=== PATIENT | female | born 1960 | race Caucasian/White ===

== ENCOUNTER 2017-05-03 16:40 | Emergency (ER) | payer BC ==
[2017-05-03 18:56] VITALS: BP 129/78
[2017-05-03] MEDS ORDERED: Clindamycin CAP* 150 MG PO ONE (20:12)
--- NOTE | 2017-05-03 22:47 | UC ---
Drea Gayle Edward, scribed for Quincy Lowe MD on 05/03/17 at 1948 . Skin Complaint HPI - HPI Summary HPI Summary: 57 y/o female presents to [facility] c/o sudden onset R hand rash, swelling and pain. The area is also hot. The red rash started last week as a small area of white that became progressively more erythematous and larger; the pt also developed hand and finger swelling and red streaks down the R forearm. Four days ago she was put on IV abx (clindamycin), which alleviated sx. However, there is a region of redness that persisted on the R lower palm and is still present. Denies fever and chills. PMHx HTN. - History of Current Complaint Chief Complaint: [place]CS[place] Time Seen by Provider: 05/03/17 19:36 Stated Complaint: HAND PAIN,REDNESS,INFLAMED Hx Obtained From: Patient Onset/Duration: Sudden Onset, Lasting Days, Still Present Skin Exposure Onset/Duration: Days Ago Location: Hand (Right) Character: Raised, Painful Associated Signs & Symptoms: Positive: Rash, Tenderness - R hand, Red Streaks - Down forearm (now resolved). Negative: Fever, Chills - Allergy/Home Medications Allergies/Adverse Reactions: Allergies Allergy/AdvReac Type Severity Reaction Status Date / Time No Known Allergies Allergy Verified 05/03/17 18:44 Home Medications: Home Medications Clindamycin Cap(NF) [Clindamycin Cap 300 mg Cap(NF)] 300 mg PO Q6H 05/03/17 [ History Confirmed 05/03/17] Review of Systems Constitutional: Negative - No fevers and chills Skin: Rash - R hand - with swelling and pain, Other - Red streaks down forearm ( now resolved) Eyes: Negative ENT: Negative Respiratory: Negative Cardiovascular: Negative Gastrointestinal: Negative Genitourinary: Negative Motor: Negative Neurovascular: Negative Musculoskeletal: Negative Neurological: Negative Psychological: Negative All Other Systems Reviewed And Are Negative: Yes PMH/Surg Hx/FS Hx/Imm Hx Previously Healthy: No Cardiovascular History: Hypertension - Surgical History Surgical History: Yes Surgery Procedure, Year, and Place: hysterectomy 1995 - Family History Known Family History: Positive: Hypertension - Social History Occupation: Employed Full-time Lives: With Family Alcohol Use: Occasionally Substance Use Type: None Smoking Status (MU): Never Smoked Tobacco - Immunization History Most Recent Influenza Vaccination: 2014 Most Recent Tetanus Shot: UNSURE Physical Exam Triage Information Reviewed: Yes Vital Signs: Initial Vital Signs Temp 98.1 F 05/03/17 18:46 Pulse 83 05/03/17 18:46 Resp 18 05/03/17 18:46 BP 129/78 05/03/17 18:46 Pulse Ox 100 05/03/17 18:46 Vital Signs Reviewed: Yes - Additional Comments The patient is well-nourished in no acute distress and in no acute pain. The skin is warm and dry and skin color reflects adequate perfusion. There is an area of erythema with a vesicle at the thenar eminence of the R hand. HEENT: The head is normocephalic and atraumatic. The pupils are equal and reactive. The conjunctivae are clear and without drainage. Nares are patent and without drainage. Mouth reveals moist mucous membranes and the throat is without erythema and exudate. The external ears are intact. The ear canals are patent and without drainage. The tympanic membranes are intact. Neck is supple with full range of motion and non-tender. There are no carotid bruits. There is no neck vein distension. Axillary nodes palpated. There were no epitrochlear nodes felt. Respiratory: Chest is non-tender. Lungs are clear to auscultation and breath sounds are symmetrical and equal. Cardiovascular: Hear is regular rate and rhythm. There is no murmur or rub auscultated. There is no peripheral edema and pulses are symmetrical and equal. Abdomen: The abdomen is soft and non-tender. There are normal bowel sounds heard in all four quadrants and there is no organomegaly palpated. Musculoskeletal: There is no back pain noted. Extremities are non-tender with full range of motion. There is good capillary refill. There is no peripheral edema or calf tenderness elicited. Neurological: Patient is alert and oriented to person, place and time. The patient has symmetrical motor strength in all four extremities. Cranial nerves are grossly intact. Deep tendon reflexes are symmetrical and equal in all four extremities. Psychiatric: The patient has an appropriate affect and does not exhibit any anxiety or depression. Course/Dx - Course Course Of Treatment: 57 y/o female presents to [facility] c/o sudden onset R hand rash , swelling and pain. The area is also hot. The red rash started last week as a small area of white that became progressively more erythematous and larger; the pt also developed hand and finger swelling and red streaks down the R forearm. Four days ago she was put on IV abx (clindamycin), which alleviated sx. However , there is a region of redness that persisted on the R lower palm and is still present. Denies fever and chills. PMHx HTN. Pt will be instructed to increase Clindamycin to 450 mg 4x a day. Basic lab work will be taken and sent to Dr. Toledo. Pt has an appt with Dr. Toledo tomorrow. Pt will be d/c home. If red streaks or fevers/chills develops, pt should go to the ED. - Differential Diagnoses - Skin Complaint Differential Diagnoses: Abscess, Cellulitis, Lymphangitis, Other - lymes disease - Diagnoses Provider Diagnoses: Cellulitis of R hand Discharge - Discharge Plan Condition: Stable Disposition: HOME Prescriptions: Clindamycin HCl [Clindamycin 150 MG CAP*] 150 mg PO QID #21 cap Patient Education Materials: Cellulitis (ED) Referrals: Tiara Toledo MD [Primary Care Provider] - 1 Day (Appt tomorrow) Additional Instructions: If red streaks or fevers/chills develops, please go to the ED. The documentation as recorded by the Drea gilbert Edward accurately reflects the service I personally performed and the decisions made by Mynor lai Drew, MD.
[2017-05-04 10:46] LABS: Hematocrit 40 % (35-47); Hemoglobin 13.1 g/dl (12.0-16.0); Mean Corpuscular HGB Conc 33 g/dl (31-36); Mean Corpuscular Hemoglobin 30 pg (27-31); Mean Corpuscular Volume 90 fL (80-97); Mean Platelet Volume 9 um3 (7.4-10.4); Red Blood Count 4.41 10^6/ul (4.0-5.4); Red Cell Distribution Width 13 % (10.5-15); White Blood Count 6.3 10^3/ul (3.5-10.8)
[2017-05-04 10:59] LABS: BUN/Creatinine Ratio 22.8 (8-20); C Reactive Protein 17.34 mg/L (< 5.00); EGFR African American 81.5 (>60); EGFR Non-African American 63.4 (>60); Potassium 3.9 mmol/L (3.5-5.0)
--- NOTE | 2017-05-04 16:35 | UC ---
Progress - Progress Note Progress Note: PLEASE CALL PATIENT CRP ELEVATED . PLEASE F/U PCP
--- NOTE | 2017-05-05 16:19 | UC ---
Progress - Progress Note Progress Note: PLEASE CALL PATIENT CRP ELEVATED . PLEASE F/U PCP 05/05/17 LYME (+), [facility] PENDING.
--- NOTE | 2017-05-06 14:56 | UC ---
Progress - Progress Note Progress Note: PLEASE CALL PATIENT CRP ELEVATED . PLEASE F/U PCP 05/05/17 LYME (+), [facility] PENDING. SPOKE TO PT. PT REPORTED THAT CELLULITIS IS IMPROVING ON CURRENT TX. HAS F/U WITH PCP ON MONDAY. ANSWERED QUESTION WITH REGARD TO WHERE WE ARE ON DIAGNOSTIC PATHWAY W/R TO LYME DZ. ALSO VERIFIED FOR PT THAT CURRENT TX WILL NOT ADDRESS LYME. REC: WAIT FOR FINAL RESULTS ON LYME SEROLOGY. F/U WITH PCP PLANNED
[2017-05-07 11:27] LABS: Lyme Disease IgG Ab WB Negative (Negative)
--- NOTE | 2017-05-08 07:06 | UC ---
Progress - Progress Note Progress Note: PLEASE CALL PATIENT CRP ELEVATED . PLEASE F/U PCP 05/05/17 LYME (+), [facility] PENDING. SPOKE TO PT. PT REPORTED THAT CELLULITIS IS IMPROVING ON CURRENT TX. HAS F/U WITH PCP ON MONDAY. ANSWERED QUESTION WITH REGARD TO WHERE WE ARE ON DIAGNOSTIC PATHWAY W/R TO LYME DZ. ALSO VERIFIED FOR PT THAT CURRENT TX WILL NOT ADDRESS LYME. REC: WAIT FOR FINAL RESULTS ON LYME SEROLOGY. F/U WITH PCP PLANNED 05/08/17 NOTIFY PT OF (+) Lyme Disease DERREK arshad prescribed should see her provider today as planned to determine if she can stop clindamycin Girish Perry MD
== END 2017-05-03 20:50 | disposition home or self-care (01) ==
LOC: UCEAST 16:40
DX: A69.20 Lyme disease, unspecified (principal); L03.113 Cellulitis of right upper limb; I10 Essential (primary) hypertension
CPT/HCPCS: 36415; 80048; 85025; 86140; 86617; 86618; 99212; A9270-GY; G0463